=== PATIENT | male | born 1945 | race Caucasian/White ===

== ENCOUNTER → 2017-03-19 | Outpatient (CLI) | payer OTHER | LOC: BHFA 14:00 | PROVIDERS: ATTEND Internal Medicine Interventional Cardiology | DX: I48.91 Unspecified atrial fibrillation (principal) ==

== ENCOUNTER → 2017-04-01 | Outpatient (CLI) | payer OTHER | LOC: BHFA 09:30 | PROVIDERS: ATTEND Internal Medicine Cardiovascular Disease | DX: I48.91 Unspecified atrial fibrillation (principal); E78.5 Hyperlipidemia, unspecified ==

== ENCOUNTER → 2017-04-05 | Outpatient (CLI) | payer OTHER | LOC: BHFA 13:00 | PROVIDERS: ATTEND Internal Medicine Cardiovascular Disease | DX: I48.91 Unspecified atrial fibrillation (principal); E78.5 Hyperlipidemia, unspecified | CPT/HCPCS: 78452; 93017; A9500; J2785 ==

== ENCOUNTER → 2017-04-24 | Outpatient (CLI) | payer OTHER | LOC: BHFA 10:45 | PROVIDERS: ATTEND Internal Medicine Cardiovascular Disease | DX: I48.91 Unspecified atrial fibrillation (principal) ==

== ENCOUNTER 2017-04-25 08:28 | Day surgery (SDC) | payer OTHER ==
[2017-04-25] MEDS ORDERED: MIDAZOLAM 2 MG/2 ML VIAL IVP ONE (08:31)
[2017-04-25] MEDS ORDERED: NS 500 ML IV ONE (08:31)
[2017-04-25] MEDS ORDERED: fentaNYL 100 MCG/2 ML INJ IVP ONE (08:31)
[2017-04-25] MEDS ORDERED: PROPOFOL 200 MG/20 ML VIAL IVP ONE (08:31)
--- NOTE | 2017-04-25 09:11 | PDANEPAE ---
ANE History of Present Illness 71 year old male with atrial fibrillation and hyperlipidemia. He has had multiple anesthetics without complication. He is here today for a cardioversion. ANE Past Medical History - Cardiovascular History Hx Hypertension: No Hx Arrhythmias: No Hx Coronary Artery / Peripheral Vascular Disease: No Hx CHF / Valvular Disease: No - Pulmonary History Hx COPD: No Hx Asthma/Reactive Airway Disease: Yes Hx Recent Upper Respiratory Infection: No Hx Oxygen in Use at Home: No Hx Sleep Apnea: No Pulmonary History Comment: seasonal allergies-meds as needed - Neurologic History Hx Cerebrovascular Accident: No Hx Seizures: No Hx Dementia: No - Endocrine History Hx Diabetes: No - Renal History Hx Renal Disorders: Yes Renal History Comment: increased urination-med - Liver History Hx Hepatic Disorders: No - Neurological & Psychiatric Hx Hx Neurological and Psychiatric Disorders: No - Cancer History Hx Cancer: No - Congenital Disorder History Hx Congenital Disorders: No - GI History Hx Gastrointestinal Disorders: Yes Gastrointestinal History Comment: diverticulitis-colectomy 2004 - Other Health History Other Health History: osteoarthritis joints - Chronic Pain History Chronic Pain: Yes (knees) - Surgical History Prior Surgeries: bilateral hip plasty. colectomy 2004. L5 surg, 1982. L knee surg 60&62. tonsils 1953 ANE Patient History - Allergies Allergies/Adverse Reactions: No Known Allergies Allergy (Verified 02/15/14 17:56) - Home Medications Home Medications: Doxazosin Mesylate [Cardura 4 MG (*)] 4 mg PO HS 02/15/14 [Last Taken 02/16/14 22:00] Herbals/Supplements -Info Only 1 ea PO DAILY 02/15/14 [Last Taken 02/16/14] Montelukast Sodium [Singulair 10 mg (*)] 10 mg PO DAILY@1800 02/15/14 [Last Taken 02/16/14 22:00] [place]-3 Fatty Acids [Fish Oil] 1,500 mg PO BID 02/15/14 [Last Taken 02/15/14] Simvastatin [Zocor] 80 mg PO DAILY18 02/15/14 [Last Taken 02/09/14 22:00] Tylenol ES 500 mg (OTC) 500 mg PO Q6 PRN 02/16/14 [Last Taken 02/16/14 22:00] - Smoking Hx Smoking Status: Never smoked - Family Anes Hx Family Hx Anesthesia Complications: no ANE Labs/Vital Signs - Labs Result Diagrams: 04/25/17 08:50 - Vital Signs Height: 185 cm Weight: 86.2 kg ANE Physical Exam - Airway Neck exam: FROM Mallampati Score: Class 1 Mouth exam: normal dental/mouth exam - Pulmonary Pulmonary: no respiratory distress - Cardiovascular Cardiovascular: regular rate and rhythym, irregularly irregular - ASA Status ASA Status: II ANE Anesthesia Plan Anesthesia Plan: MAC Urgent/Emergent Case: Ari miguel completed preop but documented later for safe timely pt care
[2017-04-25 09:19] LABS: INR 1.18 (0.83-1.16)
[2017-04-25 09:20] LABS: APTT 30.8 SEC (23.0-38.0)
[2017-04-25] MEDS ORDERED: LIDOCAINE 2% 5 ML SDV ONE (09:24)
[2017-04-25 09:25] LABS: ANION GAP 10 mEq/L (8-16); CALCIUM 9.3 mg/dL (8.5-10.4); CARBON DIOXIDE 23 mEq/l (22-31); CHLORIDE 108 mEq/L (97-110); CREATININE 0.8 mg/dL (0.7-1.3); GLOMERULAR FILTRATION RATE > 60; GLUCOSE 91 mg/dL (70-100); MAGNESIUM 2.1 mg/dL (1.6-2.3); SODIUM 141 mEq/L (134-144)
[2017-04-25] MEDS ORDERED: PROPOFOL 200 MG/20 ML VIAL ONE ×2 (09:25)
[2017-04-25] MEDS ORDERED: ATROPINE SULFATE 1 MG/10 ML SYR ONE (09:30)
--- NOTE | 2017-04-25 09:40 | CPEKG ---
Heart Rate: 61 RR Interval: 984 QRSD Interval: 88 QT Interval: 420 QTC Interval: 423 QRS [place]: 8 T Wave [place]: -18 EKG Severity - ABNORMAL ECG - EKG Impression: ATRIAL FIBRILLATION, V-RATE 49-69 EKG Impression: BORDERLINE T ABNORMALITIES, INFERIOR LEADS Electronically Signed By: Vijay Andres 25-Apr-2017 16:06:37
--- NOTE | 2017-04-25 10:39 | CPEKG ---
Heart Rate: 58 RR Interval: 1034 P-R Interval: 228 QRSD Interval: 86 QT Interval: 440 QTC Interval: 433 P [place]: 17 QRS [place]: 15 T Wave [place]: 8 EKG Severity - ABNORMAL ECG - EKG Impression: SINUS RHYTHM EKG Impression: FIRST DEGREE AV BLOCK Electronically Signed By: Vijay Andres 25-Apr-2017 16:06:29
--- NOTE | 2017-04-25 10:44 | EPPROC ---
Electrophysiology Procedure Note: Procedure: CV Indication: AF Procedure: Pt sedated by members of anesthesia staff. Once sedated, 200 J of DCCV used. pt converted to SR. Conclusion: Successful CV Patient Problems: Problems Problem Status Onset Primary osteoarthritis of left hip Acute
== END 2017-04-25 13:11 | disposition home or self-care (01) ==
LOC: FCATH 08:28
PROVIDERS: ATTEND Internal Medicine Cardiovascular Disease
PROC: 5A2204Z Restoration of Cardiac Rhythm, Single (ICD-10-PCS; principal; 2017-04-25)
DX: I48.91 Unspecified atrial fibrillation (principal); E78.5 Hyperlipidemia, unspecified; I49.5 Sick sinus syndrome
CPT/HCPCS: J0461; J2704

== ENCOUNTER → 2017-05-22 | Outpatient (CLI) | payer OTHER | LOC: BHFA 11:30 | PROVIDERS: ATTEND Internal Medicine Cardiovascular Disease | DX: I48.91 Unspecified atrial fibrillation (principal) ==

== ENCOUNTER 2018-10-10 12:23 | Day surgery (SDC) | payer OTHER ==
[2018-10-10] MEDS ORDERED: BENZOCAINE UNIT DOSE SPRAY HURRICAINE MM ONE (12:28)
[2018-10-10] MEDS ORDERED: MIDAZOLAM 2 MG/2 ML VIAL IVP ONE (12:28)
[2018-10-10] MEDS ORDERED: ATROPINE SULFATE 1 MG/10 ML SYR IVP ONE (12:28)
[2018-10-10] MEDS ORDERED: NS 500 ML IV ONE (12:28)
[2018-10-10] MEDS ORDERED: fentaNYL 100 MCG/2 ML INJ IVP ONE (12:28)
[2018-10-10 13:11] LABS: INR 1.05 (0.83-1.16); PROTIME(PATIENT) 13.9 SEC (12.0-15.0)
--- NOTE | 2018-10-10 13:33 | PDANEPAE ---
ANE History of Present Illness 72 for pa/cv ANE Past Medical History - Cardiovascular History Hx Hypertension: No Hx Arrhythmias: Yes Hx Coronary Artery / Peripheral Vascular Disease: No Hx CHF / Valvular Disease: No - Pulmonary History Hx COPD: No Hx Asthma/Reactive Airway Disease: Yes Hx Recent Upper Respiratory Infection: No Hx Oxygen in Use at Home: No Hx Sleep Apnea: No Pulmonary History Comment: seasonal allergies-meds as needed - Neurologic History Hx Cerebrovascular Accident: No Hx Seizures: No Hx Dementia: No - Endocrine History Hx Diabetes: No - Renal History Hx Renal Disorders: Yes Renal History Comment: increased urination-med - Liver History Hx Hepatic Disorders: No - Neurological & Psychiatric Hx Hx Neurological and Psychiatric Disorders: No - Cancer History Hx Cancer: No - Congenital Disorder History Hx Congenital Disorders: No - GI History Hx Gastrointestinal Disorders: Yes Gastrointestinal History Comment: diverticulitis-colectomy 2004 - Other Health History Other Health History: osteoarthritis joints - Chronic Pain History Chronic Pain: Yes (knees) - Surgical History Prior Surgeries: bilateral hip plasty. colectomy 2004. L5 surg, 1982. L knee surg 60&62. tonsils 1953 ANE Review of Systems Review of Systems: - Exercise capacity METS (RN): 4 METS ANE Patient History - Allergies Allergies/Adverse Reactions: No Known Allergies Allergy (Verified 02/15/14 17:56) - Home Medications Home medications: home medication list seen and reviewed Home Medications: Doxazosin Mesylate [Cardura 4 MG (*)] 4 mg PO HS 02/15/14 [Last Taken 10/09/18 21:00] Herbals/Supplements -Info Only 1 ea PO DAILY 02/15/14 [Last Taken 10/09/18 21:00 ] [place]-3 Fatty Acids [Fish Oil] 1,500 mg PO BID 02/15/14 [Last Taken 10/09/18 20: 00] Simvastatin [Zocor] 80 mg PO DAILY18 02/15/14 [Last Taken 10/09/18 20:00] Avodart 0.5 MG (*) 0.5 mg PO DAILY 04/25/17 [Last Taken 10/09/18 21:00] Azelastine HCl 137 mcg IN 04/25/17 [Last Taken Unknown] Fluticasone Propionate 04/25/17 [Last Taken Unknown] Pradaxa 150 mg PO DAILY 10/10/18 [Last Taken 10/09/18 20:00] - Smoking Hx Smoking Status: Never smoked - Family Anes Hx Family Hx Anesthesia Complications: no ANE Labs/Vital Signs - Labs Result Diagrams: 10/10/18 12:45 - Vital Signs Height: 6 ft 0.83 in Weight: 86.2 kg ANE Physical Exam - Airway Neck exam: FROM Mallampati Score: Class 2 Mouth exam: normal dental/mouth exam - Pulmonary Pulmonary: no respiratory distress - Cardiovascular Cardiovascular: regular rate and rhythym - ASA Status ASA Status: II ANE Anesthesia Plan Anesthesia Plan: GA with mask
[2018-10-10] MEDS ORDERED: PROPOFOL 200 MG/20 ML VIAL ONE ×2 (13:35→13:54)
--- NOTE | 2018-10-10 13:58 | GHP ---
DATE OF ADMISSION: 10/10/2018 HISTORY OF PRESENT ILLNESS: The patient is a 72-year-old male with a past medical history of coronar y artery calcifications on CT, dyslipidemia, paroxysmal atrial fibrillation, who reports going into a trial fibrillation on Saturday night, which was greater than 36 hours ago. He reports feeling that his heart was racing. This was not associated with any chest pain, dyspnea, presyncope, syncope. He is active with walking daily. Due to the onset of the atrial fibrillation, he had some warfarin lef t over, and he took 1 pill on Saturday night. Yesterday, he saw his primary care provider and was s tarted on Xarelto. He denies any bleeding issues on previous anticoagulation. He had been on warfar in in the past and stopped it as he felt that he was not in atrial fibrillation anymore. OUTPATIENT MEDICATIONS: They have not yet been reconciled but are listed as simvastatin, Cardura, Av odart, azelastine, and Xarelto. ALLERGIES: No known drug allergies. FAMILY HISTORY: Positive for heart disease. SOCIAL HISTORY: The patient is retired. He does not smoke and has only occasional alcohol intake. REVIEW OF SYSTEMS: As per HPI. A complete 10-point review of systems was obtained and is negative, except for what is dictated. PHYSICAL EXAM: VITAL SIGNS: Heart rate of 152. Otherwise, the patient appears hemodynamically stab le. GENERAL: He is a pleasant male, in no apparent distress. HEENT: Unremarkable. Eyes are witho ut scleral icterus. Mucous membranes moist. HEART: Irregular rate, tachycardic. LUNGS: Clear to auscultation. ABDOMEN: Soft, with normoactive bowel sounds. SKIN: Warm and dry. PSYCH: Normal m ood and affect. NEURO: No focal deficits detected. LABORATORY DATA: BMP is pending at this time. A 12-lead ECG personally interpreted demonstrates atr ial fibrillation, with 1 PVC. IMPRESSION AND PLAN: The patient is a 72-year-old male with a past medical history of paroxysmal atr ial fibrillation. He had been on anticoagulation in the past but stopped it as he was not having epi sodes of atrial fibrillation. He has resumed 1 dose of warfarin and then 1 dose of Xarelto yesterday . Due to having greater than 36 hours of atrial fibrillation and possibly having silent atrial fibri llation, we discussed TATYANA-guided cardioversion. Risks, benefits, and alternatives were reviewed with the patient. /[id number]/MODL
--- NOTE | 2018-10-10 14:05 | PDTEE1 ---
TATYANA Cardioversion Procedure Procedure: electrical cardioversion Indications: other (Atrial Flutter) Procedural Details: Pads were placed in anterior-posterior position. TATYANA probe was advanced and standard images obtained. There is no evidence of left atrial or left atrial appendage thrombus. Synchronized cardioversion attempt #1: other (70) Results: normal sinus rhythm Conclusions: successful TATYANA cardioversion Patient Problems: Problems Problem Status Onset Primary osteoarthritis of left hip Acute
--- NOTE | 2018-10-10 17:41 | CPEKG ---
Test Reason : OPEN Blood Pressure : / mmHG Vent. Rate : 105 BPM Atrial Rate : 146 BPM P-R Int : 135 ms QRS Dur : 078 ms QT Int : 335 ms P-R-T Axes : 000 002 059 degrees QTc Int : 443 ms Atrial fibrillation Ventricular premature complex Confirmed by Andrea Wiley ([id number]) on 10/10/2018 5:41:07 PM Referred By: Confirmed By:Andrea Wiley
--- NOTE | 2018-10-10 17:43 | CPEKG ---
Test Reason : OPEN Blood Pressure : / mmHG Vent. Rate : 074 BPM Atrial Rate : 073 BPM P-R Int : 237 ms QRS Dur : 074 ms QT Int : 384 ms P-R-T Axes : -18 003 -03 degrees QTc Int : 426 ms Sinus rhythm Prolonged WI interval Abnormal R-wave progression, early transition Confirmed by Andrea Wiley ([id number]) on 10/10/2018 5:43:09 PM Referred By: Confirmed By:Andrea Wiley
== END 2018-10-10 15:28 | disposition home or self-care (01) ==
LOC: FCATH 12:23
PROVIDERS: ATTEND Internal Medicine Cardiovascular Disease
PROC: 5A2204Z Restoration of Cardiac Rhythm, Single (ICD-10-PCS; principal; 2018-10-10)
DX: I48.92 Unspecified atrial flutter (principal); E78.5 Hyperlipidemia, unspecified; Z86.79 Personal history of other diseases of the circulatory system
CPT/HCPCS: J0461; J2704

== ENCOUNTER 2018-10-13 05:25 | Emergency (ER) | payer OTHER ==
--- NOTE | 2018-10-13 05:33 | EDPHY ---
H & P Stated Complaint: blood in urine- started xarelto 4 days ago Time Seen by Provider: 10/13/18 05:33 HPI/ROS: HPI CHIEF COMPLAINT: Hematuria. On Xarelto. HISTORY OF PRESENT ILLNESS: Patient is a 72-year-old male, history of proximal AFib, hyperlipidemia, presents to the emergency room with blood in his urine. Patient reports that he got up around 3:00 a.m. This morning to use the bathroom and noticed blood in his urine. Again it happened at 5:00 a.m.. No back pain no abdominal pain, no trouble urinating. He is on Xarelto. Of note this patient recently had TATYANA cardioversion for AFib on Saturday. He has continued is Xarelto. He has a history of proximal AFib in used to be on Coumadin. Past Medical History: AFib proximal, hyperlipidemia, coronary artery disease Past Surgical History: No recent surgery Social History: Denies drugs alcohol tobacco. Family History: Noncontributory ROS REVIEW OF SYSTEMS: 10 Systems were reviewed and negative with the exception of the elements mentioned in the history of present illness. Exam Constitutional appears well nontoxic no acute distress, triage nursing summary reviewed, vital signs reviewed, awake/alert. Eyes normal conjunctivae and sclera, EOMI, PERRLA. HENT normal inspection, atraumatic, moist mucus membranes, no epistaxis, neck supple/ no meningismus, no raccoon eyes. Respiratory clear to auscultation bilaterally, normal breath sounds, no respiratory distress, no wheezing. Cardiovascular rate normal, regular rhythm, no murmur, no edema, distal pulses normal. Gastrointestinal soft, non-tender, no rebound, no guarding, normal bowel sounds, no distension, no pulsatile mass. Genitourinary no CVA tenderness. Musculoskeletal no midline vertebral tenderness, full range of motion, no calf swelling, no tenderness of extremities, no meningismus, good pulses, neurovascularly intact. Skin pink, warm, & dry, no rash, skin atraumatic. Neurologic awake, alert and oriented x 3, AAOx3, moves all 4 extremities equally, motor intact, sensory intact, CN II-XII intact, normal cerebellar, normal vision, normal speech. Psychiatric normal mood/affect. Heme/Lymph/Immune no lymphadenopathy. Differential Diagnosis: Includes but is not limited to in a particular order cystitis, kidney stone, renal mass, bladder mass, hematuria from Xarelto Medical Decision Making: I spoke with Papo Barakat, who knows the patient very well. He recommends holding his relative given the hematuria. Check UA for infection, ultrasound of the kidneys to make sure there is no mass. EKG to make sure he is in sinus rhythm. If all this is unremarkable and he only has blood in his urine he can follow up with Dr. Wall, Papo Barakat. Re-evaluation: Plan for urinalysis Plan for ultrasound kidneys and bladder Plan for EKG to make sure in sinus rhythm. EKG interpretation by me on record in [facility] system. Impression time of EKG 6:02 a.m., sinus rhythm rate of 55, AR interval 266, no acute ischemia , this is sinus rhythm. No signs of AFib or a flutter. Unchanged from previous EKG dated 10/10/2018. Urinalysis reviewed. Positive for blood. No signs of infection. Ultrasound called to me by Dr. Ko this shows a left renal mass 2 cm cortical that is vascular. Concerning For malignancy. Given that the patient has blood in his urine and an abnormal kidney ultrasound plan will be for admission. 0655: Spoke with Papo Barakat, he is going to come and see and evaluate the patient. Requesting CT urogram at this time. CT urogram ordered. Papo Barakat to follow up and see patient. Source: Patient - Personal History Tetanus Vaccine Date: within 10 years - Medical/Surgical History Hx Asthma: No Hx Chronic Respiratory Disease: No Hx Diabetes: No Hx Cardiac Disease: No Hx Renal Disease: No Hx Cirrhosis: No Hx Alcoholism: No Hx HIV/AIDS: No Hx Splenectomy or Spleen Trauma: No Other PMH: L5 Diskectomy, cholectomy 2004 s/p diverticulosis, problems urinating due to urethral tightness, elevated cholesterol, asthma, left total hip arthroplasty (6 years ago). a- fib - Social History Smoking Status: Never smoked Constitutional: Initial Vital Signs Temperature (C) 36.4 C 10/13/18 05:29 Heart Rate 64 10/13/18 05:29 Respiratory Rate 20 10/13/18 05:29 Blood Pressure 144/86 H 10/13/18 05:29 O2 Sat (%) 95 10/13/18 05:29 O2 Delivery Mode Room Air Allergies/Adverse Reactions: No Known Allergies Allergy (Verified 10/13/18 05:28) Home Medications: Medication Instructions Recorded Doxazosin Mesylate [Cardura 4 MG 4 mg PO HS 02/15/14 (*)] Herbals/Supplements -Info Only 1 ea PO DAILY 02/15/14 [place]-3 Fatty Acids [Fish Oil] 1,500 mg PO BID 02/15/14 Simvastatin [Zocor] 80 mg PO DAILY18 02/15/14 Avodart 0.5 MG (*) 0.5 mg PO DAILY 04/25/17 Azelastine HCl 137 mcg IN 04/25/17 Fluticasone Propionate 04/25/17 Xarelto 20 mg PO DAILY 10/10/18 Medical Decision Making - Data Points Laboratory Results: Laboratory Results 10/13/18 06:42 10/13/18 06:42 Medications Given: Discontinued Medications Sodium Chloride (Ns) 1,000 mls @ 0 mls/hr IV ONCE ONE PRN Reason: Wide Open Stop: 10/13/18 07:18 Last Admin: 10/13/18 07:27 Dose: 1,000 mls Departure - Departure Disposition: Home, Routine, Self-Care Clinical Impression: Hematuria Qualifiers: Hematuria type: gross Qualified Code(s): R31.0 - Gross hematuria Condition: Good Instructions: Hematuria (ED) Additional Instructions: 1. Drink lots of fluids stay well-hydrated 2. Return emergency room if you can't urinate or have abdominal pain or back pain 3. Follow up with your primary care doctor 4. There is an abnormal mass seen on her left kidney on the ultrasound today. Please follow up with her primary care doctor and Urology. Referrals: Unknown,Unknown [Primary Care Provider] - As per Instructions Michel Hampton MD [Medical Doctor] - As per Instructions Sincere Raines MD [Medical Doctor] - As per Instructions
--- NOTE | 2018-10-13 06:28 | CPEKG ---
Test Reason : OPEN Blood Pressure : / mmHG Vent. Rate : 055 BPM Atrial Rate : 055 BPM P-R Int : 266 ms QRS Dur : 082 ms QT Int : 436 ms P-R-T Axes : -38 017 019 degrees QTc Int : 417 ms Sinus rhythm Prolonged [place] interval Abnormal R-wave progression, early transition Confirmed by Noman Rivas ([id number]) on 10/13/2018 6:27:35 AM Referred By: Confirmed By:Noman Rivas
[2018-10-13 06:57] LABS: PLATELET COUNT 191 10^3/uL (150-400)
[2018-10-13] MEDS ORDERED: NS 1,000 ML IV ONE (07:17)
[2018-10-13] MEDS ORDERED: IOPAMIDOL (ISOVUE-300) 200 ML BTL ONE (07:22)
[2018-10-13 07:28] VITALS: BP 145/90
== END 2018-10-13 08:37 | disposition home or self-care (01) ==
DX: N28.9 Disorder of kidney and ureter, unspecified (principal); R31.0 Gross hematuria; I48.91 Unspecified atrial fibrillation; E78.5 Hyperlipidemia, unspecified; I25.10 Atherosclerotic heart disease of native coronary artery without angina pectoris; Z79.01 Long term (current) use of anticoagulants
CPT/HCPCS: 74178; 76770; 93005; 96360; 99285; Q9967

== ENCOUNTER 2018-11-20 05:41 | Inpatient (IN) | payer OTHER ==
[2018-11-20] MEDS ORDERED: cefOXitin SODIUM 2 GM in NS 100 ML IV ONE (06:10)
[2018-11-20] MEDS ORDERED: LR 1,000 ML IV ONE (06:42)
[2018-11-20] MEDS ORDERED: MIDAZOLAM 2 MG/2 ML VIAL IVP ONE (06:57)
--- NOTE | 2018-11-20 06:57 | PDANEPAE ---
ANE History of Present Illness L DaVinci assist nephrectomy ANE Past Medical History - Cardiovascular History Hx Hypertension: No Hx Arrhythmias: Yes Hx Coronary Artery / Peripheral Vascular Disease: No Hx CHF / Valvular Disease: No Cardiovascular History Comment: cardioversion x 2 - Pulmonary History Hx COPD: No Hx Asthma/Reactive Airway Disease: Yes Hx Recent Upper Respiratory Infection: No Hx Oxygen in Use at Home: No Hx Sleep Apnea: No Pulmonary History Comment: seasonal allergies-meds as needed - Neurologic History Hx Cerebrovascular Accident: No Hx Seizures: No Hx Dementia: No - Endocrine History Hx Diabetes: No - Renal History Hx Renal Disorders: Yes Renal History Comment: l kidney growth 2 cm - Liver History Hx Hepatic Disorders: No - Neurological & Psychiatric Hx Hx Neurological and Psychiatric Disorders: No - Cancer History Hx Cancer: No - Congenital Disorder History Hx Congenital Disorders: No - GI History Hx Gastrointestinal Disorders: Yes Gastrointestinal History Comment: diverticulitis-colectomy 2004 - Other Health History Other Health History: osteoarthritis joints - Chronic Pain History Chronic Pain: Yes (knees) - Surgical History Prior Surgeries: bilateral hip plasty. colectomy 2004. L5 surg, 1982. L knee surg 60&62. tonsils 1953 ANE Review of Systems Review of systems is: negative Review of Systems: - Exercise capacity METS (RN): 5 METS ANE Patient History - Allergies Allergies/Adverse Reactions: No Known Allergies Allergy (Verified 10/13/18 05:28) - Home Medications Home medications: home medication list seen and reviewed Home Medications: Doxazosin Mesylate [Cardura 4 MG (*)] 4 mg PO HS 02/15/14 [Last Taken 11/19/18] Herbals/Supplements -Info Only 1 ea PO DAILY 02/15/14 [Last Taken 1 Week Ago ~] [place]-3 Fatty Acids [Fish Oil] 1,500 mg PO BID 02/15/14 [Last Taken 1 Week Ago ~ 11/13/18] Azelastine [Astelin Nasal [place] (RX)] 1 sprays EACHNARE BID PRN 11/04/18 [Last Taken 2 Months Ago ~09/19/18] Dutasteride [Avodart 0.5 MG (*)] 0.5 mg PO Q3D@2100 11/04/18 [Last Taken ] Fluocinonide 0.05% [Lidex 0.05% Cream (RX)] 1 deandre TOP BID PRN 11/04/18 [Last Taken 2 Weeks Ago ~11/06/18] Fluticasone Nasal [Flonase Nasal [place] (RX)] 1 sprays EACHNARE BID PRN 11/04/18 [Last Taken 2 Months Ago ~09/19/18] Ketoconazole 2% [Nizoral 2% Cream (*)] 1 deandre TP DAILY PRN 11/04/18 [Last Taken 2 Weeks Ago ~11/06/18] Metoprolol Succinate Xr [Toprol Xl 25 mg (*)] 12.5 mg PO DAILY 11/04/18 [Last Taken 11/19/18] Montelukast Sodium [Singulair 10 mg (*)] 10 mg PO HS PRN 11/04/18 [Last Taken ] Multivitamins [Multivitamin (*)] 1 each PO DAILY 11/04/18 [Last Taken 1 Week Ago ~11/13/18] Simvastatin 20 mg PO HS 11/04/18 [Last Taken 11/18/18] - NPO status NPO Status: no food or drink >8 hours NPO Since - Liquids (Date): 11/19/18 NPO Since - Liquids (Time): 23:00 NPO Since - Solids (Date): 11/19/18 NPO Since - Solids (Time): 12:00 - Anes Hx Anes Hx: no prior problems - Smoking Hx Smoking Status: Never smoked - Family Anes Hx Family Anes Hx: none Family Hx Anesthesia Complications: no ANE Labs/Vital Signs - Vital Signs Vital Signs: reviewed preoperatively; see RN documention for details Blood Pressure: 94/69 Heart Rate: 65 Respiratory Rate: 14 O2 Sat (%): 91 Height: 185.42 cm Weight: 84.822 kg ANE Physical Exam - Airway Neck exam: decreased ROM Mallampati Score: Class 2 Mouth exam: normal dental/mouth exam - Pulmonary Pulmonary: no respiratory distress, clear to auscultation - Cardiovascular Cardiovascular: regular rate and rhythym - ASA Status ASA Status: II ANE Anesthesia Plan Anesthesia Plan: general endotracheal anesthesia
[2018-11-20] MEDS ORDERED: DEXAMETHASONE 4 MG/ML VIAL ONE (07:17)
[2018-11-20] MEDS ORDERED: SUGAMMADEX SODIUM 200 MG/2 ML VIAL IVP ONE (07:17)
[2018-11-20] MEDS ORDERED: ONDANSETRON 4 MG/2 ML VIAL ONE (07:17)
[2018-11-20] MEDS ORDERED: ROCURONIUM 50 MG/5 ML VIAL ONE (07:17)
[2018-11-20] MEDS ORDERED: LIDOCAINE 2% 100 MG/5 ML SYR ONE (07:17)
[2018-11-20] MEDS ORDERED: HYDROmorphONE/DILAUDID 2 MG/ML INJ ONE ×2 (07:18→11:53)
[2018-11-20] MEDS ORDERED: PROPOFOL 200 MG/20 ML VIAL ONE (07:18)
[2018-11-20] MEDS ORDERED: fentaNYL 100 MCG/2 ML INJ ONE ×2 (07:18→11:28)
--- NOTE | 2018-11-20 07:20 | PDHPUP ---
History & Physical Update H&P update statement: This history and physical update is based on an assessment of the patient which was completed after admission or registration (within 24 hours), but prior to the surgery/procedure. H&P update: no change in patient's condition since H&P completed
--- NOTE | 2018-11-20 07:20 | POSTOPPROG ---
Post Op Note Date of Operation: 11/21/18 Surgeon: Sera King (# [id number]) Respite Provider: NOELLE Kee Anesthesia: GET(General Endotracheal) Pre-op Diagnosis: Left renal mass Post-op Diagnosis: Left renal mass Procedure: Robotic left partial nephrectomy w/ intraoperative u/s Findings: See op note Inf/Abcess present in the surg proc area at time of surgery?: No EBL: 50-100 (50 cc) Complications: None Drains: Brian Fink (10 Flat) Specimen(s): Left renal mass
[2018-11-20] MEDS ORDERED: BUPIVACAINE/EPI 0.5% 30 ML SDV ONE (07:38)
[2018-11-20] MEDS ORDERED: ROCURONIUM 100 MG/10 ML VIAL ONE (08:21)
[2018-11-20] MEDS ORDERED: HYDROmorphONE/DILAUDID 2 MG/ML INJ IVP PRN (08:57)
[2018-11-20] MEDS ORDERED: oxyCODONE IR 5 MG TAB PO PRN (08:57)
[2018-11-20] MEDS ORDERED: DEXAMETHASONE 4 MG/ML VIAL IVP PRN (08:57)
[2018-11-20] MEDS ORDERED: HYDROCODONE/APAP 5/325 TAB PO PRN (08:57)
[2018-11-20] MEDS ORDERED: ACETAMINOPHEN 500 MG TAB PO PRN (08:57)
[2018-11-20] MEDS ORDERED: NALOXONE HCL 0.4 MG/ML INJ IVP PRN (08:57)
[2018-11-20] MEDS ORDERED: ONDANSETRON 4 MG/2 ML VIAL IVP PRN ×2 (08:57→11:48)
[2018-11-20] MEDS ORDERED: MEPERIDINE 25 MG/0.5 ML AMP IVP PRN (08:57)
[2018-11-20] MEDS ORDERED: PROMETHAZINE HCL 25 MG/ML INJ IVP PRN ×2 (08:57→11:48)
--- NOTE | 2018-11-20 08:58 | POSTANESTH ---
Post Anesthetic Evaluation Cardiovascular Status: Normal, Stable, Similar to Pre-Op Cond Respiratory Status: Normal, Stable, Similar to Pre-op Cond. Level of Consciousness/Mental Status: Can Participate in Eval, Mildly Sleepy, Arousable Pain Control: Adequate, Prn Tx Ordered Nausea/Vomiting Control: Adequate, Prn Tx Ordered Complications Possibly Related to Anesthesia: None Noted
[2018-11-20] MEDS ORDERED: THROMBIN(HUM PLAS)/FIBRINOG/CA 5 ML VIAL TP ONE (09:26)
[2018-11-20] MEDS: fentaNYL 100 MCG/2 ML INJ IVP PRN ×2 (11:31→11:35)
[2018-11-20] MEDS ORDERED: HYDROmorphONE/DILAUDID 1 MG/ML INJ IVP PRN (11:48)
[2018-11-20] MEDS ORDERED: FLUTICASONE NASAL 120 SPRAYS/16 GM MDI EACHNARE PRN (11:49)
[2018-11-20] MEDS ORDERED: AZELASTINE NASAL MDI EACHNARE PRN (11:49)
[2018-11-20] MEDS ORDERED: FLUOCINONIDE 0.05% 15 GM CREAM TP PRN (11:49)
--- NOTE | 2018-11-20 14:50 | PDMN ---
Medical Necessity Medical necessity: Pt meets IP criteria as of 11/20/2018 [place] and [facility] [id number] ( [place] by [place] est lso > 2 mn for ongoing tx and evaluation s/p nephrectomy d/t complex renal mass and cysts concerning for neoplasm of uncertain behavior.
[2018-11-20] MEDS: D5W 1/2 NS 1,000 ML IV SCH (15:32)
[2018-11-20] MEDS ORDERED: cefOXitin SODIUM 2 GM in NS 100 ML IV SCH (16:00)
[2018-11-20] MEDS: cefOXitin SODIUM 2 GM in NS 100 ML IV SCH ×2 (16:42→20:55)
[2018-11-20] MEDS: METOPROLOL SUCCINATE XR 25 MG TAB PO SCH (17:56)
[2018-11-20] MEDS: HYDROmorphONE/DILAUDID 1 MG/ML INJ IVP PRN ×2 (17:57→20:49)
--- NOTE | 2018-11-20 18:45 | SOAPPROG ---
SOAP Progress Note Assessment/Plan: Assessment: Plan: 11/20/18 18:42 suspected a fib with h/o same. Bedside monitor suggesting NSR while in with patient this evening. Will check formal EKG. Cardioverted in 09/2018 with good rhythm capture. Was put on Xarelto when a fib noted in office. Had hematuria which triggered workup to find renal mass which was excised today. Dr King doesn't want any anticoagulants for 72 hours given the nature of the vascular kidney surgery. Patient otherwise stable with good HR and BP. Will follow Subjective: Macario feels ok after surgery. Some pain earlier, but improved now. No SOB. + pain in left abdomen with deep breath. Patient aware of increased HR and suspicious of a fib. No CP/palpitations. Objective: Vital Signs Temp Pulse Resp BP Pulse Ox 36.6 C 84 18 137/90 H 96 11/20/18 13:00 11/20/18 16:00 11/20/18 16:00 11/20/18 16:00 11/20/18 16:00 11/19/18 11/20/18 11/21/18 05:59 05:59 05:59 Intake Total 2320 Output Total 325 Balance 1994 Gen: NAD, comfortable Lungs: CTAB Heart: RRR at bedside, monitor with sinus rhythm with occasional PVC, formal EKG pending Abd post op incisions clean, drain in place LE's without edema VSS ICD10 Worksheet Patient Problems: Problems Problem Status Onset Hematuria Acute Primary osteoarthritis of left hip Acute
[2018-11-20] MEDS: ATORVASTATIN CALCIUM 10 MG TAB PO SCH (20:49)
[2018-11-20] MEDS: DUTASTERIDE 0.5 MG CAP PO SCH (21:00)
[2018-11-20] MEDS: DOXAZOSIN MESYLATE 4 MG TAB PO SCH (21:00)
[2018-11-21] MEDS: HYDROmorphONE/DILAUDID 1 MG/ML INJ IVP PRN ×7 (01:15→18:14)
[2018-11-21] MEDS: D5W 1/2 NS 1,000 ML IV SCH ×2 (01:27→09:03)
--- NOTE | 2018-11-21 08:50 | SOAPPROG ---
PILAR Progress Note Assessment/Plan: Assessment: Plan: 11/20/18 18:42 suspected a fib with h/o same. Bedside monitor suggesting NSR while in with patient this evening. Will check formal EKG. Cardioverted in 09/2018 with good rhythm capture. Was put on Xarelto when a fib noted in office. Had hematuria which triggered workup to find renal mass which was excised today. Dr King doesn't want any anticoagulants for 72 hours given the nature of the vascular kidney surgery. Patient otherwise stable with good HR and BP. Will follow 11/21/18 08:49 s/p partial nephrectomy--path pending heart rhythm irregularity. currently back to NSR with sivan--his baseline. Subjective: Feels ok. No new troubles. Pain as expected from surgery. Tired. 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
[2018-11-21] MEDS ORDERED: METOPROLOL SUCCINATE XR 25 MG TAB PO SCH (09:00)
[2018-11-21] MEDS: METOPROLOL SUCCINATE XR 25 MG TAB PO SCH (09:09)
--- NOTE | 2018-11-21 09:20 | CPEKG ---
Test Reason : OPEN Blood Pressure : / mmHG Vent. Rate : 076 BPM Atrial Rate : 076 BPM P-R Int : 286 ms QRS Dur : 080 ms QT Int : 394 ms P-R-T Axes : 005 049 038 degrees QTc Int : 444 ms Sinus rhythm Multiple ventricular premature complexes Prolonged OK interval Abnormal R-wave progression, early transition Confirmed by Garry Escobar ([id number]) on 11/21/2018 9:19:30 AM Referred By: Sera King Confirmed By:Garry Escobar
--- NOTE | 2018-11-21 10:03 | ASMTCMCOM ---
CM Note CM Note Notes: Pt's chart reviewed for d/c planning. Pt is a 73 y/o male who had a nephrectomy partial on 11/20/2018. Pt is recovering. Pt is . No CM needs identified; CM will follow for changes. D/C Plan: Anticipate independent. Date Signed: 11/21/2018 10:03 AM Electronically Signed By:Chastity Elliott
[2018-11-21] MEDS ORDERED: MONTELUKAST SODIUM 10 MG TAB PO PRN (11:49)
--- NOTE | 2018-11-21 12:40 | SOAPPROG ---
SOAP Progress Note Assessment/Plan: Assessment: 1. POD 1 s/p robotic left partial nephrectomy - stable. 2. Paroxysmal a-fib -- current in sinus rhythm. Appreciate Papo Barakat's input. Plan: 1. Continue postop care, strongly encouraged to continue ambulation. 2. Advance to regular diet tomorrow. 3. Recheck labs and OMAR creatinine level in AM. 4. Start Toradol. Subjective: Complains of mild pain that is controlled with meds. Tolerating CLD; no flatus yet. Ambulated once in halls thus far. Bonner just removed. Objective: Vital Signs Temp Pulse Resp BP Pulse Ox 36.7 C 51 L 19 122/71 H 93 11/21/18 12:00 11/21/18 12:00 11/21/18 12:00 11/21/18 12:00 11/21/18 12:00 Laboratory Results 11/21/18 08:34 11/21/18 08:34 11/20/18 11/21/18 11/22/18 05:59 05:59 05:59 Intake Total 2320 1375 Output Total 990 480 Balance 1330 895 Physical Exam - Physical Exam General Appearance: WD/WN, alert, no apparent distress Abdomen: soft (mild vandana-incisional tenderness; incisions intact) Male Genitalia: normal genitalia Skin: normal color, warm/dry Extremities: non-tender, normal inspection Neuro/Psych: alert, normal mood/affect ICD10 Worksheet Patient Problems: Problems Problem Status Onset 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
[2018-11-21] MEDS: KETOROLAC 15 MG/1 ML SDV IVP SCH ×3 (16:22→21:58)
[2018-11-21] MEDS: ATORVASTATIN CALCIUM 10 MG TAB PO SCH (21:58)
[2018-11-21] MEDS: DOXAZOSIN MESYLATE 4 MG TAB PO SCH (21:59)
[2018-11-21] MEDS: DUTASTERIDE 0.5 MG CAP PO SCH (21:59)
[2018-11-22] MEDS: KETOROLAC 15 MG/1 ML SDV IVP SCH ×4 (04:08→23:34)
--- NOTE | 2018-11-22 07:25 | GOP ---
[f rep st] OPERATIVE REPORT DATE OF OPERATION: 11/20/2018 SURGEON: Sera King MD BIOTECH PRODUCTION SPECIALIST: Rebecca June CFA ANESTHESIA: General endotracheal. PREOPERATIVE DIAGNOSIS: Left renal mass. POSTOPERATIVE DIAGNOSIS: Left renal mass. PROCEDURE PERFORMED: Robotically-assisted laparoscopic left partial nephrectomy with intraoperative ultrasound. FINDINGS: Abnormal partially exophytic left anterolateral renal mass along the upper to mid pole. This mass appeared to measure approximately 3 cm. SPECIMENS: Left renal mass. ESTIMATED BLOOD LOSS: 50 cc. INDICATIONS: This gentleman was recently found to have an approximately 3 cm partially endophytic left renal mass. He has opted for surgical excision at this time. The indications for the procedures, as well as potential risks and complications, were discussed with the patient preoperatively. He appeared to understand, his questions were answered, and he wished to proceed. Written informed surgical consent was thereafter obtained. DESCRIPTION OF PROCEDURE: The patient was brought to the operating room and administered general endotracheal anesthesia. He was carefully placed over the break of the table. Table was flexed approximately 15 degrees. The patient was placed in left flank up position with the use of a triangular pad behind his back. The right leg was flexed at the knee, and left leg was kept straight over it. This positioning commenced after placement of 16-E[place]ian Bonner catheter to gravity drainage. Pillows were placed between the patient's legs. All appropriate pressure points were padded thoroughly. The patient's right arm was kept abducted less than 90 degrees on an arm board, while the left arm was kept in a neutral position along his left side within a foam trough. The patient was then thoroughly secured to the table from head to toe with several strips of tape. Once the patient was thoroughly secured to the table, his stability on the operating table was confirmed by tilting the table into maximum right and left positions. The patient was confirmed to be safely secured to the table. The abdomen was then sterilely prepped and draped in standard fashion utilizing Ioban. The table was tilted to flatten the abdomen as much as possible. Intraabdominal access was gained with a Veress needle approximately nursing home between the umbilicus and the xiphoid process, and approximately 2 cm lateral to the left of midline with a Veress needle. A 12 mm laparoscopic port was placed at this location and used as a camera port for the remainder of the case. The 0 degree 12 mm robotic camera was then brought onto the field and placed within the port. Proper intraabdominal access was confirmed. I then marked out my remaining port sites which were as follows: An 8 mm robotic port in the left upper quadrant, just below the costal margin and approximately in the midclavicular line; another 8 mm port placed in the lower aspect of the left upper quadrant and nearly in the same midclavicular line; and a 12 mm assistant professor sculpture port placed in the midline below the umbilicus. All these ports were placed under direct vision without complication. The patient was then placed in the left flank up position approximately 90 degrees. The robot was then docked perpendicular to the patient's back while keeping the camera laparoscopic port in line with the main post of the robot. Once the robot was docked, the respective arms were then secured to the appropriate ports. I then left the patient's bedside and entered the surgeon's robotic console. I began the robotic portion of the procedure by mobilizing the left colon off the lateral abdominal wall with monopolar scissors. I carefully mobilized the colon medially and across the midline in order to expose the underlying Gerota' s fascia and perirenal fat of the left kidney. I then identified the ureter several cm caudal to the kidney, as well as the gonadal vein. After finding these structures, I continued my dissection posteriorly until the psoas fascia was identified. The previously identified gonadal vein and ureter were then tented up anteriorly, which allowed me to continue my medial dissection toward the renal hilum using sharp scissors dissection. I was ultimately able to follow the gonadal vein to its insertion into the left renal vein. I then carefully dissected the hilum from the surrounding structures. There were at least 2 or 3 small veins entering the renal vein in the area where the dissection was performed. These veins were ligated carefully with bipolar cautery and divided with scissors. I ultimately ligated the gonadal vein as well, between Hem-o-bruno clips and using scissors. Once the renal vein was carefully dissected free from the surrounding tissue, I was able to create a window below the renal vein that would allow for placement of a bulldog vascular clamp. I then was able to identify the renal artery that appeared to be located just posterior to the inferior edge of the renal vein. I was able to carefully dissect it free from the surrounding tissue to allow for placement of 2 bulldog clamps. It should also be noted that there was another arterial complex that was sitting several cm caudally that initially appeared to be a large accessory vein for the proximal ureter. However, on closer inspection, there was also the possibility this was a lower pole renal artery. Therefore, this vascular complex was left intact and was actually clamped with a bulldog during the nephrectomy portion of the procedure. I then turned my attention to identifying the mass. The perirenal fat was carefully stripped off the renal capsule with monopolar scissors dissection. This was performed circumferentially. I was ultimately able to identify the presumed abnormal mass along the anterolateral aspect of the upper to mid pole of the left kidney. Once the perirenal fat was completely mobilized off the kidney, I then brought the intraoperative ultrasound onto the field. Ultrasound confirmed that the mass in question was indeed a solid mass that corresponded with the mass that was seen on preoperative CT imaging. There was also a simple cyst seen deeper in the kidney, and sat just deep to the inner margin of the abnormal renal mass. I also knew from preoperative imaging that the deepest aspect of the abnormal renal mass sat against the upper pole renal collecting system. At this point, I felt I was ready to proceed with resection of the abnormal mass. After further thought, I felt that I would be able to do this more effectively with better visualization utilizing the 30 degree down 12 mm robotoic camera. This camera was brought onto the field and utilized at this point. It should also be mentioned while still performing intraoperative sonography, I did score the renal capsule with cautery circumferentially around the mass, taking care to leave a reasonable margin of normal-appearing tissue circumferentially around the mass. At this point, 2 curved vascular bulldog clamps were placed across the renal artery, 1 straight clamp was placed across the renal vein, and another straight clamp was placed along the lower pole accessory vascular complex previously mentioned. The time was noted by nursing staff. I then dissected the mass using monopolar scissors dissection circumferentially. I took great care to ensure that the deeper portion of the resection included a reasonable appearing normal margin. Once the mass was completely dissected free, it did appear that at the depth of the resection, I did enter an upper pole calyx. I used a 3-0 Vicryl V-Loc suture to close this calyceal rent in a horizontal mattress fashion. This was followed by reapproximation of the deeper aspect of the renorrhaphy with another running 3-0 Vicryl V-Loc suture. This was followed by reapproximation of the renal capsule and cortex with a running 0 Vicryl suture using a sliding clip renorrhaphy technique in a zigzag fashion. I decided to use 2 of these sutures, 1 that was deeper and 1 that was more superficial. After completing the renorrhaphy closure, there appeared to be nice approximation of the kidney defect. At this point, I decided to take off the vascular clamps. After doing so, excellent hemostasis of the renorrhaphy closure was noted. The kidney was also noted to be normally viable, based on its color. Cross clamp time was noted to be 30 minutes. I then placed a total of 5 cc of Evicel over the renorrhaphy closure and the renal hilum. With the intraabdominal pressure decreased to 5 mmHg, hemostasis was present along the operative site. At this point, a 10 mm specimen bag was brought into the abdomen and utilized to capture the specimen. It was ultimately brought out through the assistant professor sculpture port site. A 10 flat Brian- Fink drain was then placed through the lower 8 mm robotic port site and draped along the left colic gutter. This drain externally was ultimately secured to the skin with a 2-0 silk suture and connected to bulb suction. This completed the robotic portion of the procedure. It should be mentioned that the intraabdominal anatomy was otherwise unaffected by the partial nephrectomy portion of the procedure, specifically the spleen and large bowel. I returned to the patient's bedside. The 12 mm camera port site rectus fascia was reapproximated with an 0 Vicryl suture and a fascial closure device. The remaining ports were removed. The infraumbilical assistant professor sculpture port site incision was extended slightly with scalpel and electrocautery in order to allow for removal of the specimen bag. The anterior rectus fascia at this location was reapproximated with a running 0 Vicryl suture. All the skin sites were then anesthetized with a total of 30 cc of 0.5% Marcaine with epinephrine. The skin edges were then reapproximated at all incisions with running 4-0 Monocryl suture in a subcuticular fashion. A 2-0 silk stitch was again placed around the drain to secure it to the skin. All the incisions were then dressed with Dermabond. A Biopatch and Tegaderm were utilized around the drain site. The patient was then awakened, extubated, transferred to his bed, and taken to the recovery room. He tolerated the procedure well overall. LEFT RENAL WARM ISCHEMIA TIME: 30 minutes. DISPOSITION: The patient was transferred to the recovery room in stable condition, will be admitted for postoperative care. /[id number]/MODL MTDD
[2018-11-22] MEDS: METOPROLOL SUCCINATE XR 25 MG TAB PO SCH (08:29)
--- NOTE | 2018-11-22 10:36 | SOAPPROG ---
SOAP Progress Note Assessment/Plan: Assessment:Neoplasm of uncertain behavior of left kidney Acute POD 2 Plan: continue care plan, IM to see for A-fib 11/22/18 10:35 Subjective: weak, reflux Objective: Vital Signs Temp Pulse Resp BP Pulse Ox 36.6 C 54 L 18 125/77 H 92 11/22/18 07:26 11/22/18 08:29 11/22/18 07:26 11/22/18 08:29 11/22/18 07:26 Laboratory Results 11/22/18 05:38 11/22/18 05:38 11/21/18 11/22/18 11/23/18 05:59 05:59 05:59 Intake Total 2320 2549 Output Total 990 1130 Balance 1330 1419 Physical Exam - Physical Exam General Appearance: alert Neck: supple Respiratory: No respiratory distress Abdomen: other (post op, no acute issues) Skin: warm/dry Neuro/Psych: alert, oriented x 3 ICD10 Worksheet Patient Problems: Problems Problem Status Onset 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
[2018-11-22] MEDS: FAMOTIDINE 20 MG/NACL 50 ML IV SCH ×2 (11:54→23:36)
[2018-11-22] MEDS ORDERED: RANITIDINE 50 MG/2 ML VIAL IVP SCH (14:00)
--- NOTE | 2018-11-22 14:28 | SOAPPROG ---
PILAR Progress Note Assessment/Plan: Assessment: Plan: 11/22/18 14:28 Paroxysmal atrial fibrillation: 2 brief episodes noted on monitor. Has been on Xarelto in past. Consider resuming anti-coagulation when ok with surgery, presumably tomorrow. Hyponatremia: mild. Will monitor. Subjective: Feeling pretty well. Two brief episodes noted on monitor yesterday morning and this morning. Otherwise has been in sinus rhythm with PVCs. Is able to tell when he is in atrial fibrillation but looking at his pulse rate on his Fitbit. 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
[2018-11-22] MEDS: HYDROCODONE/APAP 5/325 TAB PO PRN ×2 (16:34→20:45)
[2018-11-22] MEDS: ATORVASTATIN CALCIUM 10 MG TAB PO SCH (20:45)
[2018-11-22] MEDS: DOXAZOSIN MESYLATE 4 MG TAB PO SCH (20:45)
[2018-11-23] MEDS: METOPROLOL SUCCINATE XR 25 MG TAB PO SCH (09:30)
[2018-11-23] MEDS: HYDROCODONE/APAP 5/325 TAB PO PRN ×2 (09:30→13:01)
[2018-11-23] MEDS: FAMOTIDINE 20 MG/NACL 50 ML IV SCH (09:32)
[2018-11-23 11:23] VITALS: BP 111/68
[2018-11-23] MEDS ORDERED: SENNOSIDES/DOCUSATE SODIUM TAB PO ONE (11:58)
--- NOTE | 2018-11-23 12:07 | SOAPPROG ---
SOAP Progress Note Assessment/Plan: Assessment:Neoplasm of uncertain behavior of left kidney Acute POD 3 Plan: continue care plan, IM to see for A-fib, DC drain, DC home 11/23/18 12:06 Subjective: improved Objective: Vital Signs Temp Pulse Resp BP Pulse Ox 36.7 C 47 L 15 111/68 93 11/23/18 11:22 11/23/18 11:22 11/23/18 11:22 11/23/18 11:22 11/23/18 11:22 Laboratory Results 11/22/18 05:38 11/23/18 05:02 11/22/18 11/23/18 11/24/18 05:59 05:59 05:59 Intake Total 2549 375 Output Total 1130 1930 650 Balance 7150 -1240 -759 Physical Exam - Physical Exam General Appearance: alert Neck: full range of motion Respiratory: No respiratory distress Cardiac/Chest: regular rate, rhythm Abdomen: soft Extremities: No calf tenderness, No Nathan's sign Neuro/Psych: oriented x 3 ICD10 Worksheet Patient Problems: Problems Problem Status Onset 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
--- NOTE | 2018-11-23 12:42 | ASDISCHSUM ---
Discharge Information Plan Status:Home with Home Health Medically Cleared to Leave: Discharge Date: CM D/C Disposition:Home, Routine, Self-Care ADT D/C Disposition:Home, Routine, Self-Care Projected Discharge Date: Transportation at D/C:Family Discharge Delay Reason: Follow-Up Date: Discharge Slot: Final Diagnosis: Placement Information Patient Contact Information Contact Name:SHAQ Relationship: Address:[address] City:[place] Alternate Phone: State/Zip Code:[place] [address] Email: Financial Information Financial Class:Medicare Primary Plan Desc:MEDICARE INPATIENT Primary Plan Number:[id number] Secondary Plan Desc:[facility] Get[employer] INSURANCE Secondary Plan Number:[id number] Assessment Information LACE LACE Length of stay for Answers: 3 days current admission Acuity / Level of Answers: Yes Care: Did the patient have an inpatient admission? Comorbidities - select Answers: Opioid dependence all that apply / Chronic pain Other Notes: Diverticulitis # of Emergency department Answers: 1-2 visits in the last 6 months Score: 12 Date Signed: 11/23/2018 12:41 PM Electronically Signed By:DELROY Minor [facility] CM Progress Note CM Note CM Note Notes: Pt's chart reviewed for d/c planning. Pt is a 73 y/o male who had a nephrectomy partial on 11/20/2018. Pt is recovering. Pt is . No CM needs identified; CM will follow for changes. D/C Plan: Anticipate independent. Date Signed: 11/21/2018 10:03 AM Electronically Signed By:Chastity Elliott Case Management Discharge Plan Note Case Management Discharge Discharge Order Complete? Answers: Yes Patient to Obtain Answers: via Family Medications Transportation Arranged Answers: Family/Friends Discharge Comments Notes: Discussed discharge plan with pt. Pt reports no concerns. Family to transport. Date Signed: 11/23/2018 12:40 PM Electronically Signed By:DELROY Minor Intervention Information
--- NOTE | 2018-12-11 14:21 | GDS ---
[f rep st] DISCHARGE SUMMARY ADMISSION DIAGNOSIS: Neoplasm of left kidney. DISCHARGE DIAGNOSIS: Neoplasm of left kidney. Pathology revealed oncocytoma, left partial nephrecto my. HOSPITAL COURSE: The gentleman was an a.m. admission, had the above procedure performed on the . He is discharged home on 11/23/2018, to have followup with me in the office in 3 weeks. /[id number]/MODL
== END 2018-11-23 13:09 | disposition home or self-care (01) | DRG 658 ==
LOC: F3N 05:41 → F1N 12:52
PROVIDERS: ADMIT Specialist; ATTEND Specialist
DX: D30.02 Benign neoplasm of left kidney (principal); I48.0 Paroxysmal atrial fibrillation; N40.1 Benign prostatic hyperplasia with lower urinary tract symptoms; R35.1 Nocturia; Z79.01 Long term (current) use of anticoagulants; Z96.643 Presence of artificial hip joint, bilateral
CPT/HCPCS: J0694; J1100; J1170; J1885; J2001; J2250; J2405; J2704; J3010

== ENCOUNTER 2018-12-24 07:15 | Observation (INO) | payer OTHER ==
--- NOTE | 2018-12-26 09:56 | GHP ---
[f rep st] PREOP HISTORY AND PHYSICAL DATE OF ADMISSION: 01/14/2019 PROBLEM: Left knee arthritis. HISTORY OF PRESENT ILLNESS: The patient is a 73-year-old man admitted for a left total knee arthropl asty. He has had progressive degenerative arthritis in his left knee over the past 10 years. Many y ears ago he underwent left knee epiphysiodesis to correct a leg length discrepancy. He has had progr essive pain and limping. We have tried viscosupplementation injections with minimal benefit. He is admitted for a left total knee arthroplasty. PAST MEDICAL HISTORY: He has had bilateral total hip arthroplasties. About 6 weeks ago he underwent a partial nephrectomy for a benign renal tumor. He has a history of intermittent atrial fibrillatio n. He has been cardioverted twice. Most recently he was cardioverted in September 2018. He is curre ntly in sinus rhythm. He is treated for elevated cholesterol. He has a known enlarged prostate. No history of stents, DVT, hepatitis, MRSA staph infections, sleep apnea or hereditary bleeding disor ders. CURRENT MEDICATIONS: Doxazosin 0.4 mg daily. Metoprolol ER 25 mg daily. Simvastatin 40 mg daily. DRUG ALLERGIES: None. METAL ALLERGY: None. LATEX ALLERGY: None. SOCIAL HISTORY: The patient is . He is retired. He does not smoke cigarettes. He occasiona lly drinks alcohol. FAMILY HISTORY: Positive for heart disease in his father. PHYSICAL EXAMINATION: VITAL SIGNS: Height 6 feet 1 inch. Weight 185 pounds. BMI 24.4. EYES: Con junctivae and sclerae are clear. Pupils are round and reactive. MOUTH: Good oral hygiene. No loos e teeth. CHEST: Clear. HEART: Regular rhythm. No murmurs. EXTREMITIES: Pertinent findings are limited to his left knee. He lacks a few degrees of full extension and flexes to 120 degrees. He is tender along the medial joint line. He has a moderate effusion. He has mild pseudolaxity of his me dial collateral ligament. IMAGING: His films show very severe medial compartment degenerative arthritis. He is bone on bone. He has erosion of the medial tibial plateau in the medial femoral condyle. Moderate patellofemoral arthritis in the left knee. IMPRESSION ON ADMISSION: 1. Left knee severe degenerative arthritis. He is prepared for a left total knee arthroplasty. 2. Status post bilateral total hip arthroplasties. 3. Status post recent partial nephrectomy for benign renal tumor. 4. History of intermittent atrial fibrillation. 5. Treatment for elevated cholesterol. 6. Known prostate enlargement. PLAN: He will undergo a left total knee arthroplasty. The surgery has been described to him susan basurto the risks, complications, expectations, and recovery time. I have stressed the importance of post operative physical therapy. I have explained to him that a small percentage of people do not get a s atisfactory result with a total knee replacement. I have cautioned him that the stress of surgery co uld convert him into atrial fibrillation again. All of his questions have been answered, and he cons ents to surgery. He notified that he frequently has bradycardia at night. /[id number]/MODL
[2019-01-14] MEDS ORDERED: POVIDONE-IODINE 20 ML in SODIUM CL IRRIG SOLUTION 500 ML IRR ONE (06:00)
[2019-01-14] MEDS ORDERED: ROPIVACAINE 0.2% 80 MG, EPINEPHrine 0.2 MG, KETOROLAC TROMETHAMINE 30 MG in SYRINGE 0 ML IU ONE (06:00)
[2019-01-14] MEDS ORDERED: ceFAZolin 2 GM/DEXTROSE 100 ML IV ONE (06:00)
[2019-01-14] MEDS ORDERED: TRANEXAMIC ACID 1,000 MG in NS 100 ML IV ONE (06:00)
[2019-01-14] MEDS ORDERED: FAMOTIDINE 20 MG TAB PO ONE (08:26)
[2019-01-14] MEDS ORDERED: ONDANSETRON 4 MG/2 ML VIAL IVP ONE (08:26)
[2019-01-14] MEDS ORDERED: ACETAMINOPHEN 325 MG TAB PO ONE (08:26)
[2019-01-14] MEDS ORDERED: GABAPENTIN 300 MG CAP PO ONE (08:26)
[2019-01-14] MEDS ORDERED: DEXAMETHASONE 4 MG/ML VIAL IVP ONE (08:26)
[2019-01-14] MEDS ORDERED: LR 1,000 ML IV ONE (08:29)
[2019-01-14] MEDS ORDERED: TRANEXAMIC ACID 3,000 MG in NS (SYRINGE) 50 ML IRR ONE (08:32)
[2019-01-14] MEDS ORDERED: VANCOMYCIN 1 GM VIAL ONE (08:37)
[2019-01-14] MEDS ORDERED: TRANEXAMIC ACID 3,000 MG/50 ML BAG IRR ONE (08:37)
[2019-01-14] MEDS ORDERED: ceFAZolin 1 GM VIAL ONE (08:47)
--- NOTE | 2019-01-14 08:48 | PDHPUP ---
History & Physical Update H&P update statement: This history and physical update is based on an assessment of the patient which was completed after admission or registration (within 24 hours), but prior to the surgery/procedure. H&P update: H&P reviewed & patient examined
[2019-01-14] MEDS ORDERED: MIDAZOLAM 2 MG/2 ML VIAL IVP ONE (09:13)
--- NOTE | 2019-01-14 09:13 | PDANEPAE ---
ANE History of Present Illness tka ANE Past Medical History - Cardiovascular History Hx Hypertension: No Hx Arrhythmias: Yes Hx Chest Pain: No Hx Coronary Artery / Peripheral Vascular Disease: No Hx CHF / Valvular Disease: No Hx Palpitations: No Cardiovascular History Comment: cardioversion x 2 - Pulmonary History Hx COPD: No Hx Asthma/Reactive Airway Disease: Yes Hx Recent Upper Respiratory Infection: No Hx Oxygen in Use at Home: No Hx Sleep Apnea: No Sleep Apnea Screening Result - Last Documented: Negative Pulmonary History Comment: seasonal allergies-meds as needed - Neurologic History Hx Cerebrovascular Accident: No Hx Seizures: No Hx Dementia: No - Endocrine History Hx Diabetes: No Hypothyroid: No Hyperthyroid: No Obesity: no - Renal History Hx Renal Disorders: Yes Renal History Comment: partial nephrectomy for benign tumor - Liver History Hx Hepatic Disorders: No - Neurological & Psychiatric Hx Hx Neurological and Psychiatric Disorders: No - Cancer History Hx Cancer: No - Congenital Disorder History Hx Congenital Disorders: No - GI History GERD: no Hx Gastrointestinal Disorders: Yes Gastrointestinal History Comment: diverticulitis-colectomy 2004 - Other Health History Other Health History: osteoarthritis joints - Chronic Pain History Chronic Pain: Yes (knees) - Surgical History Prior Surgeries: bilateral hip plasty. colectomy 2004. L5 surg, 1982. L knee surg 60&62. tonsils 1953 ANE Review of Systems Review of Systems: - Exercise capacity Exercise capacity: >=4 METS METS (RN): 5 METS ANE Patient History - Allergies Allergies/Adverse Reactions: No Known Allergies Allergy (Verified 10/13/18 05:28) - Home Medications Home medications: home medication list seen and reviewed Home Medications: Doxazosin Mesylate [Cardura 4 MG (*)] 4 mg PO HS 02/15/14 [Last Taken 01/13/19] Herbals/Supplements -Info Only 1 ea PO DAILY 02/15/14 [Last Taken 1 Week Ago ~] [place]-3 Fatty Acids [Fish Oil] 1,500 mg PO BID 02/15/14 [Last Taken 1 Week Ago ~ 01/07/19] Dutasteride [Avodart 0.5 MG (*)] 0.5 mg PO Q3D@2100 11/04/18 [Last Taken ] Multivitamins [Multivitamin (*)] 1 each PO DAILY 11/04/18 [Last Taken 1 Week Ago ~01/07/19] Simvastatin 20 mg PO HS 11/04/18 [Last Taken 01/13/19] Singulair 01/14/19 [Last Taken 01/12/19] - NPO status NPO Since - Liquids (Date): 01/14/19 NPO Since - Liquids (Time): 06:30 NPO Since - Solids (Date): 01/13/19 NPO Since - Solids (Time): 04:30 - Anes Hx Anes Hx: no prior problems - Smoking Hx Smoking Status: Never smoked - Family Anes Hx Family Hx Anesthesia Complications: no ANE Labs/Vital Signs - Vital Signs Blood Pressure: 124/73 Heart Rate: 48 Respiratory Rate: 16 O2 Sat (%): 94 Height: 185.42 cm Weight: 84.822 kg ANE Physical Exam - Airway Mallampati Score: Class 2 Mouth exam: normal dental/mouth exam - Pulmonary Pulmonary: no respiratory distress - Cardiovascular Cardiovascular: regular rate and rhythym - ASA Status ASA Status: II ANE Anesthesia Plan Anesthesia Plan: spinal Regional Anesthesia: continuous NB, adductor canal FNB
[2019-01-14 09:55] LABS: PLATELET COUNT 168 10^3/uL (150-400)
[2019-01-14] MEDS ORDERED: fentaNYL 100 MCG/2 ML INJ ONE (10:15)
[2019-01-14] MEDS ORDERED: PROPOFOL/EMULSION 500 MG/50 ML BOTTLE IV ONE ×3 (10:15→11:52)
[2019-01-14] MEDS ORDERED: LIDOCAINE 2% 5 ML SDV ONE (10:16)
[2019-01-14] MEDS ORDERED: BUPIVACAINE 0.5% 30 ML SDV ONE (10:16)
--- NOTE | 2019-01-14 10:43 | POSTOPPROG ---
Post Op Note Date of Operation: 01/14/19 Surgeon: Edu Andrade System Development Engineer: Arron/Tammie Anesthesiologist: Ari Post-op Diagnosis: left knee arthritis Procedure: left TKA Inf/Abcess present in the surg proc area at time of surgery?: No EBL: 50-100 (ACB in PACU with indwelling catheter.)
[2019-01-14] MEDS ORDERED: GLYCOPYRROLATE 0.2 MG/1 ML VIAL ONE ×3 (10:52→11:09)
[2019-01-14] MEDS ORDERED: ePHEDrine SULFATE 25 MG/5 ML SYR ONE (11:22)
--- NOTE | 2019-01-14 12:20 | POSTOPPROG ---
Post Op Note Date of Operation: 01/14/19 Surgeon: Edu Andrade Phosphoric Acid Operator: Arron/Tammie Anesthesiologist: Ari Post-op Diagnosis: Left knee degenerative arthritis Procedure: Left total knee arthroplasty Inf/Abcess present in the surg proc area at time of surgery?: No EBL: 50-100 (Adductor canal block with indwelling catheter in PACU.)
[2019-01-14] MEDS ORDERED: ROPIVACAINE HCL 150 MG/30 ML INJ ONE (12:26)
[2019-01-14] MEDS ORDERED: ALBUTEROL 3 ML DEYVIAL IH PRN (12:28)
[2019-01-14] MEDS ORDERED: ONDANSETRON 4 MG/2 ML VIAL IVP PRN ×2 (12:28→12:40)
[2019-01-14] MEDS ORDERED: fentaNYL 100 MCG/2 ML INJ IVP PRN (12:28)
[2019-01-14] MEDS ORDERED: PHENYLEPHRINE HCL 100 MCG/ML SYR IVP PRN (12:28)
[2019-01-14] MEDS ORDERED: NALOXONE HCL 0.4 MG/ML INJ IVP PRN (12:28)
[2019-01-14] MEDS ORDERED: LR 500 ML IV PRN (12:28)
[2019-01-14] MEDS ORDERED: MAGNESIUM HYDROXIDE 30 ML UDCUP PO PRN (12:40)
[2019-01-14] MEDS ORDERED: ONDANSETRON DISINTEGRATING 4 MG TAB PO PRN (12:40)
[2019-01-14] MEDS ORDERED: NS 500 ML IV PRN (12:40)
[2019-01-14] MEDS ORDERED: TEMAZEPAM 15 MG CAP PO PRN (12:40)
[2019-01-14] MEDS ORDERED: PROMETHAZINE HCL 25 MG SUPPR PR PRN (12:40)
[2019-01-14] MEDS ORDERED: DIPHENOXYLATE/ATROPINE LOMOTIL 1 TAB PO PRN (12:40)
[2019-01-14] MEDS ORDERED: METOCLOPRAMIDE 10 MG/2 ML VIAL IVP PRN (12:40)
[2019-01-14] MEDS ORDERED: BISACODYL 10 MG SUPP PR PRN (12:40)
[2019-01-14] MEDS ORDERED: POLYETHYLENE GLYCOL 3350 17 GM PKT PO PRN (12:40)
[2019-01-14] MEDS ORDERED: oxyCODONE IR 5 MG TAB PO PRN (12:40)
[2019-01-14] MEDS ORDERED: LACTULOSE 20 GM/30 ML UDCUP PO PRN (12:40)
[2019-01-14] MEDS ORDERED: traMADol 50 MG TAB PO PRN (12:40)
[2019-01-14] MEDS ORDERED: PROMETHAZINE HCL 25 MG/ML INJ IVP PRN (12:40)
[2019-01-14] MEDS ORDERED: diphenhydrAMINE 25 MG CAP PO PRN (12:40)
[2019-01-14] MEDS ORDERED: CYCLOBENZAPRINE 10 MG TAB PO PRN (12:40)
--- NOTE | 2019-01-14 12:56 | GOP ---
[f rep st] OPERATIVE REPORT DATE OF OPERATION: 01/14/2019 SURGEON: Edu Andrade MD METAL ORGAN PIPE MAKER: Ozzy Cho TECHNICAL ASSISTANCE CONSULTANT. ANESTHESIA: A combination of Marcaine spinal, IV sedation and adductor canal block. ANESTHESIOLOGIST: Andre Chapman MD. PREOPERATIVE DIAGNOSIS: Left knee severe degenerative arthritis. POSTOPERATIVE DIAGNOSIS: Left knee severe degenerative arthritis. PROCEDURE PERFORMED: A left total knee arthroplasty, cemented, Mondragon and Nephew Journey II, posterio r stabilized. FINDINGS: ESTIMATED BLOOD LOSS: Estimated blood loss following deflation of the tourniquet was about 100 mL. The sponge and needle counts were correct on 2 occasions. He was awakened from anesthesia, transferred to his [facility] and taken to PACU in satisfactory condition. There were no recognized intraoperative complications. In the PACU, for additional post operative pain control, Dr. Chapman performed an adductor canal block with an indwelling catheter. Curry Heller and Ozzy Cho acted as surgical assistants. Their assistance was a medical necess ity for safe completion of the procedure. DESCRIPTION OF PROCEDURE: The patient was given 2 g of IV Ancef preoperatively within 60 minutes of surgery. He also received 1000 mg of IV tranexamic acid preoperatively. He was placed on the operat ing room table and given spinal anesthesia with Marcaine by Dr. Chapman. He was then placed supine an d given IV sedation. A Bonner catheter was not used. He wore a MARIO ALBERTO stocking and SCD on the nonoperat shola leg. A small bolster was placed under the left hip to prevent excessive external rotation of the leg. His left lower extremity was prepped with ChloraPrep from the upper thigh tourniquet to the ti ps of the toes. It was draped free using sterile sheets, stockinette and Ioban plastic adhesive drap e. The lower leg was wrapped with compressive Coban. The leg was exsanguinated with elevation and a 6-inch compressive wrap and the tourniquet was inflated to 300 mmHg. The [employer] time-out was performed to verify the correct patient identity and the c orrect surgical side and site. The [place] time-out was also performed. The CustomInkayo leg-holding device was sterilely attached to the operating room table and used throughout the procedure to help position the knee. A straight midline incision was made centered on the patell a. Subcutaneous tissues were sharply divided and hemostasis was obtained using electrocautery. A me dial subcutaneous flap was developed and the capsule and synovium were opened in a medial parapatella r fashion. Extensive degenerative changes were present in all 3 compartments. Large peripheral oste ophytes were present on the medial and lateral femoral condyles. The capsule and synovium were eleva mario alberto off the rim of the medial tibial plateau all the way around to the posteromedial corner. I relea sed the medial and collateral ligament enough to balance the medial side of the knee and correct the varus deformity. In order to improve the exposure, his patella was prepared first. The original thickness of the chin lla was measured. Peripheral osteophytes removed. I cut a flat surface on the back of the patella. It was sized for a 41 mm round resurfacing component. I removed enough bone from the patella such t hat the remaining bone plus the thickness of the patellar component recreated the original thickness of the patella. The composite thickness was 27 mm. The intramedullary alignment guide system was used to set up the distal femoral cut. I was careful w ith the intramedullary nail because he did have a total hip replacement on this side. The distal fem ur was cut in 5 degrees of valgus. The sizing jig was used to determine proper femoral sizing. He w as a size 8 from [id number], but he was clearly a size 7 from anterior to posterior. I chose the s ize 7 component. The five-in-one cutting block was applied and the anterior and posterior condylar c uts and chamfer cuts were made. The final jig was used to remove the central portion of the distal f emur to accommodate the posterior stabilized femoral component. I was careful to determine proper ro tation by referencing off [place] line and other bony landmarks. Each cut was checked for accurac y. The femur was sized for a size 7 posterior stabilized component. Next, the tibia was prepared. The proximal tibial cut was made using the extramedullary alignment gu nieves system. The cut was made in a few degrees of posterior slope. I was careful to achieve proper v arus/valgus alignment and proper rotation. The posterior compartment was cleared of meniscal remnant s. Large osteophytes were removed from the back of his femoral condyles. I checked the flexion/exte nsion gaps and they were equal, balanced and rectangular. The tibia was sized for a size 7 component . With the trial components in place, I selected an 11 mm polyethylene posterior stabilized tibial i nsert. The knee came to full extension and flexed to 130 degrees. His collateral ligaments were sta ble and balanced in 90 degrees of flexion and full extension. The trial patellar button was applied and tracking was checked. Tracking was excellent without any digital pressure. 40 mL of joint anesthetic cocktail was injected into the posterior capsule, the quadriceps muscle and tendon areas and the subcutaneous tissues along the skin edges. The surfaces were prepared for cementing. They were carefully cleaned with the pulsating lavage irri gation and thoroughly dried. The CarboJet device was used to blow dry the cancellous surfaces. A do uble batch of high-viscosity methylmethacrylate cement with 2 g of powdered vancomycin added was mixe d. While it was still in a doughy state, all [address] components were cemented in place. Excess cement was removed before it hardened. The 11 mm trial tibial insert was re-tried and was the proper thickness. The actual component was in serted and locked into place. The knee was thoroughly irrigated 1 final time with a dilute Betadine solution. The tourniquet was deflated and the total tourniquet time was 58 minutes. 50 mL of tranexamic acid s olution was irrigated into the wound. The vastus medialis portion of the extensor mechanism was repaired with several interrupted figure-of -eight #2 FiberWire sutures. The capsule and synovium were closed first with multiple interrupted fi [id number] 0 PDS sutures followed by a running #2 barbed Ethicon Stratafix PDO suture. The subcut aneous tissues were closed with a running 0 barbed Ethicon Stratafix Monoderm suture. The skin was c losed with a running 3-0 barbed Ethicon Stratafix Monoderm subcuticular suture. The skin was sealed with half-inch Steri-Strips. The wound was covered with a large Mepilex waterproof sterile dressing and a 6-inch compressive wrap. A long-leg MARIO ALBERTO stocking and SCD were applied followed by the cooling device. He wore a stocking and SCD on the opposite leg during the procedure. The sacral Mepilex steph ssing was applied. I used a size 7 Mondragon and Nephew cemented Oxinium posterior stabilized femoral component, a size 7 ce mented tibial base plate, an 11 mm posterior stabilized tibial insert and a 41 mm cemented round all- polyethylene resurfacing patellar component. /[id number]/MODL
[2019-01-14] MEDS ORDERED: LR 1,000 ML IV SCH (13:00)
--- NOTE | 2019-01-14 13:01 | POSTANESTH ---
Post Anesthetic Evaluation Cardiovascular Status: Normal, Stable Respiratory Status: Normal, Stable Level of Consciousness/Mental Status: Can Participate in Eval Pain Control: Adequate, Prn Tx Ordered Nausea/Vomiting Control: Adequate, Prn Tx Ordered Complications Possibly Related to Anesthesia: None Noted
[2019-01-14] MEDS: ACETAMINOPHEN 325 MG TAB PO SCH (18:49)
[2019-01-14] MEDS: ceFAZolin 2 GM/DEXTROSE 100 ML IV SCH (18:50)
[2019-01-14] MEDS: KETOROLAC 15 MG/1 ML SDV IVP SCH (18:50)
[2019-01-14] MEDS: FAMOTIDINE 20 MG TAB PO SCH (20:28)
[2019-01-14] MEDS: SENNOSIDES/DOCUSATE SODIUM TAB PO SCH (20:28)
[2019-01-14] MEDS ORDERED: ATORVASTATIN CALCIUM 10 MG TAB PO SCH (21:00)
[2019-01-14] MEDS ORDERED: DOXAZOSIN MESYLATE 4 MG TAB PO SCH (21:00)
[2019-01-14] MEDS: ASPIRIN 325 MG TAB PO SCH (21:37)
[2019-01-15] MEDS: KETOROLAC 15 MG/1 ML SDV IVP SCH ×3 (00:54→11:14)
[2019-01-15] MEDS: ACETAMINOPHEN 325 MG TAB PO SCH ×3 (00:54→12:01)
[2019-01-15] MEDS: ceFAZolin 2 GM/DEXTROSE 100 ML IV SCH (02:24)
[2019-01-15] MEDS ORDERED: LIPID EMULSION 20% 100 ML IV PRN (06:04)
--- NOTE | 2019-01-15 06:05 | PDPAINCON ---
Pain Management Consultation Patient referred by : Raymond - Subjective Pain at rest (/10): 0 Pain with activity (/10): 1 Pain is: low, well controlled (some pain in upper thigh area, not around surgical site.) Activity: out of bed with assistance, participating in PT - Objective Technique: single shot nerve block Catheter site: clean, dry, intact Sensory and motor exam: consistent with block Vital signs: stable - Assessment/Plan Assessment/Plan: pain well-controlled, continue current mgmt Additional comments: Additional injection of Ropivacaine 0.5% 20 ml given in 5 ml aliquots after intermittent negative aspiration, while monitoring VS. AC catheter removed easily with intact tip. Patient tolerated procedure well.
--- NOTE | 2019-01-15 07:29 | SOAPPROG ---
SOAP Progress Note Assessment/Plan: Assessment: Afebrile. Awake and alert. Mild pain so far. He has been up and walking in the room. Postop H&H are good. Postop films look good. His dressing is dry. Plan: Up with physical therapy for stairs and range of motion. Standing leg length film before discharge. Discharge later today. 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
--- NOTE | 2019-01-15 07:43 | GDS ---
[f rep st] DISCHARGE SUMMARY ADMISSION DIAGNOSIS: Left knee severe degenerative arthritis. DISCHARGE DIAGNOSIS: Left knee severe degenerative arthritis. OPERATION PERFORMED: 01/14/2019, a left total knee arthroplasty. POSTOPERATIVE COMPLICATIONS: None. CONDITION ON DISCHARGE: Improved. DESCRIPTION OF HOSPITAL COURSE: The patient was admitted to the hospital on the morning of surgery. His admission hemoglobin and hematocrit were 12.5 and 36.5. BUN and creatinine 13 and 0.8. The day, under a combination of Marcaine, spinal, IV sedation, and adductor canal block, he underwent a left total knee arthroplasty. Postoperatively, he was treated with multimodal DVT prophylaxis, incl uding aspirin. On the 1st postoperative day, his hemoglobin and hematocrit were 10.6 and 32.0. He w as seen by Physical Therapy and made good progress with ambulation, stairs, and knee range of motion. By the time of discharge, he was afebrile and was independent walking with a walker. DISPOSITION: The patient is discharged to his home. He will go to outpatient physical therapy. He may progress to full weightbearing on the left as tolerated. Continue MARIO ALBERTO stockings for 1 week. Matt bedolla aspirin 325 mg p.o. daily for 21 days. He has prescriptions for Celebrex, tramadol, and oxycod one for pain control. I will see him back in the office on January 29, 2019. If there are any problem s, he is to call me at the office. /[id number]/MODL
[2019-01-15] MEDS ORDERED: FERROUS SULFATE 325 MG TAB PO SCH (08:00)
[2019-01-15] MEDS: SENNOSIDES/DOCUSATE SODIUM TAB PO SCH (08:30)
[2019-01-15] MEDS: FAMOTIDINE 20 MG TAB PO SCH (08:31)
[2019-01-15] MEDS: ASPIRIN 325 MG TAB PO SCH (08:31)
[2019-01-15] MEDS ORDERED: METOPROLOL SUCCINATE XR 25 MG TAB PO SCH (09:00)
--- NOTE | 2019-01-15 09:09 | ASMTLACE ---
LACE Length of stay for Answers: 2 days current admission Acuity / Level of Answers: No Care: Did the patient have an inpatient admission? Comorbidities - select Answers: Any tumor (including all that apply lymphoma or leukemia) # of Emergency department Answers: 1-2 visits in the last 6 months Score: 5 Date Signed: 01/15/2019 09:08 AM Electronically Signed By:JESSICA Saba
--- NOTE | 2019-01-15 09:10 | ASMTCMCOM ---
CM Note CM Note Notes: PT rec home/outpatient. MD rec outpatient. Pt medically stable for d/c, no CM d/c needs identified. Date Signed: 01/15/2019 09:09 AM Electronically Signed By:JESSICA Saba
[2019-01-15 11:13] VITALS: BP 126/74
[2019-01-15] MEDS ORDERED: DUTASTERIDE 0.5 MG CAP PO SCH (21:00)
== END 2019-01-15 12:06 | disposition home or self-care (01) ==
LOC: F3N 01-14 08:04 → INTOOBSV 01-14 08:04 → F3N 01-14 13:49
PROVIDERS: ADMIT Orthopaedic Surgery; ATTEND Orthopaedic Surgery
PROC: 0SRD0J9 Replacement of Left Knee Joint with Synthetic Substitute, Cemented, Open Approach (ICD-10-PCS; principal; 2019-01-14 09:30)
DX: M17.12 Unilateral primary osteoarthritis, left knee (principal); I48.91 Unspecified atrial fibrillation; N40.0 Benign prostatic hyperplasia without lower urinary tract symptoms; E78.5 Hyperlipidemia, unspecified; N28.9 Disorder of kidney and ureter, unspecified; Z79.01 Long term (current) use of anticoagulants; Z96.643 Presence of artificial hip joint, bilateral; Z98.890 Other specified postprocedural states
CPT/HCPCS: 27447; 73560; 77073; 88311; 97116; 97161; 97165; C1713; C1776; J0171; J0690; J1100; J1885; J2250; J2405; J2704; J2795; J3010; J3370